=== PATIENT | male | born 1980 | race Two or more races ===

== ENCOUNTER 2022-11-28 17:30 | Emergency (ER) | payer BC ==
[2022-11-28] MEDS ORDERED: Amoxicillin/Clavulanate K 875-125 MG Tab PO ONE (19:53)
== END 2022-11-28 20:35 | disposition home or self-care (01) ==
LOC: JD.ED 17:30
DX: S02.40DA Maxillary fracture, left side, initial encounter for closed fracture (principal); S02.2XXA Fracture of nasal bones, initial encounter for closed fracture; Y04.0XXA Assault by unarmed brawl or fight, initial encounter; Y92.59 Other trade areas as the place of occurrence of the external cause; Y99.0 Civilian activity done for income or pay
CPT/HCPCS: 70450; 70486; 99283; A9270